=== PATIENT | male | born 1985 | race Caucasian/White ===

== ENCOUNTER 2016-08-09 06:52 | Emergency (ER) | payer OTHER ==
[~2016-08-09] VITALS: Ht 177.8 cm; Wt 100.9 kg
[~2016-08-09 06:52] MED LIST: AMOX TR-K CLV1 EAC3 PO; AMOXICILLIN500 MG PO; IBUPROFEN800 MG PO; TRAMADOL HCL50 MG PO
[2016-08-09 08:11] LABS: EOSINOPHIL (%) 0.6 % (0-5); HEMATOCRIT 43.2 % (38.0-50.0); IMMATURE GRANULOCYTE (%) 0.2 % (0.0-0.7); INSTRUMENT ABS NEUTROPHIL CT 4.6 K/uL; LYMPHOCYTE COUNT 0.8 K/uL (1.0-2.8); MCHC 34.5 G/DL (30.0-36.0); MCV 89.8 FL (86-99); MEAN PLAT.VOLUME 9.8 uM^3 (9.0-12.4); MONOCYTE (%) 10.6 % (3-12); MONOCYTE COUNT 0.7 K/uL (0-0.8); NEUTROPHIL (%) 75.3 % (45-76); NEUTROPHIL COUNT 4.6 K/uL (1.8-6.4); PLATELET COUNT 264 K/uL (156-360); RBC DIS.WIDTH-CV 12.5 % (11.8-14.6); RBC DIS.WIDTH-SD 41.7 % (39-53); RED BLOOD COUNT 4.81 M/uL (4.00-5.50); WHITE BLOOD COUNT 6.2 K/uL (4.1-10.2)
[2016-08-09 08:21] LABS: CHLORIDE 106 mEq/L (99-109); POTASSIUM 4.3 mEq/L (3.7-5.4); SODIUM 139 mEq/L (136-147)
[2016-08-09 08:23] LABS: GLUCOSE 102 mg/dL (70-99)
[2016-08-09 08:23] LABS: INFLUENZA A VIRAL ANTIGEN POSITIVE; INFLUENZA B VIRAL ANTIGEN NEGATIVE
[2016-08-09 08:25] LABS: ANION GAP 7 MEQ/L (2-14)
[2016-08-09 08:27] LABS: GFR ESTIMATE (CALCULATED) > 59 mL/min/
[2016-08-09 08:28] LABS: UREA NITROGEN (BUN) 13 mg/dL (9-23)
[2016-08-09 08:44] LABS: ADD MIUA? YES; BILIRUBIN NEGATIVE; BLOOD NEGATIVE; COLOR YELLOW ((YELLOW)); GLUCOSE (STRIP) NEGATIVE; KETONES NEGATIVE; LEUKOCYTES NEGATIVE; NITRITE NEGATIVE; PROTEIN (STRIP) 30; SPECIFIC GRAVITY 1.021 (1.000-1.030); UROBILINOGEN 0.2 MG/DL (0.2-1.0)
[2016-08-09 08:47] LABS: BACTERIA NONE SEEN /HPF; EPITHELIAL CELLS NONE SEEN /HPF; MUCUS TRACE /LPF; RED BLOOD CELLS 0-5 /HPF (0-5); UCUL ADDED? NO; WHITE BLOOD CELLS 0-5 /HPF (0-5)
[2016-08-09] MEDS ORDERED: TAMIFLU75 MG PO (09:47)
[2016-08-09 10:04] VITALS: BP 105/59
== END 2016-08-09 10:07 | disposition home or self-care (01) ==
LOC: EME 06:52
PROVIDERS: Emergency Medicine
DX: J10.1 Influenza due to other identified influenza virus with other respiratory manifestations (principal); R55 Syncope and collapse
CPT/HCPCS: 70450; 71020; 80048; 81003; 85025; 87502; 93005; 99281; 99285; J7030